=== PATIENT | female | born 1970 | race Caucasian/White ===

== ENCOUNTER → 2020-05-20 | Outpatient (CLI) | payer BC ==
--- NOTE | 2020-05-22 10:47 | MM ---
Reason for exam: screening (asymptomatic). Last mammogram was performed 10 years and 4 months ago. History: Patient had first child at age 30. Physical Findings: A clinical breast exam by your physician is recommended on an annual basis and results should be correlated with mammographic findings. MG 3D Screening Mammo W/Cad Bilateral CC and MLO view(s) were taken. Prior study comparison: January 23, 2010, mammogram, performed at [facility]. There are scattered fibroglandular densities. There is no discrete abnormality. No significant changes when compared with prior studies. ASSESSMENT: Negative, BI-RAD 1 RECOMMENDATION: Routine screening mammogram of both breasts in 1 year.
== END | disposition home or self-care (01) ==
LOC: RADMAMWWP 15:42
PROVIDERS: ATTEND Obstetrics & Gynecology Obstetrics
DX: Z12.31 Encounter for screening mammogram for malignant neoplasm of breast (principal)
CPT/HCPCS: 77063; 77067

== ENCOUNTER → 2023-04-20 | Outpatient (CLI) | payer OTHER ==
--- NOTE | 2023-04-25 07:50 | MM ---
Reason for Exam: Screening (asymptomatic). Last mammogram was performed 2 year(s) and 11 month(s) ago. Patient History: Menarche at age 20. First Full-Term at age 30. Late child-bearing (after 30). Risk Values: Alexandra 5 year model risk: 1.4%. NCI Lifetime model risk: 10.6%. Prior Study Comparison: 01/23/2010 Screening Mammogram, [facility]. 05/20/2020 Bilateral Screening Mammogram, [facility]. Tissue Density: There are scattered fibroglandular densities. Findings: Analyzed By CAD. There is no suspicious group of microcalcifications or new suspicious mass in either breast. Overall Assessment: Negative, BI-RAD 1 Management: Screening Mammogram of both breasts in [address] [facility] will attempt to contact patient to return for supplemental views and ultrasound if indicated. Patient should continue monthly self-breast exams. A clinical breast exam by your physician is recommended on an annual basis. This exam should not preclude additional follow-up of suspicious palpable abnormalities. Note on Alexandra scores and lifetime risk: 1. A Alexandra score greater than 3% is considered moderate risk. If this is the case, consider specialist referral to assess eligibility for a risk reducing agent. 2. If overall lifetime risk for the development of breast cancer is 20% or higher, the patient may qualify for future screening with alternating mammogram and breast MRI. Electronically signed and approved by: Yunior Staples DO
== END | disposition home or self-care (01) ==
LOC: RADMAMWWP 16:49
PROVIDERS: ATTEND Family Medicine
DX: Z12.31 Encounter for screening mammogram for malignant neoplasm of breast (principal)
CPT/HCPCS: 77063; 77067

== ENCOUNTER → 2025-01-18 | Outpatient (CLI) | payer OTHER ==
--- NOTE | 2025-01-18 09:32 | US ---
EXAMINATION TYPE: US abdomen complete DATE OF EXAM: 01/18/2025 COMPARISON: 08/26/2015 CLINICAL INDICATION: Female, 54 years old with history of R10.9 UNSPECIFIED ABDOMINAL PAIN; cholecyst ectomy, hx of pancreatitis, hx of kidney stones TECHNIQUE: Grayscale and color Doppler imaging of the abdomen was performed. FINDINGS: EXAM MEASUREMENTS: Liver Length: 18.7 cm Gallbladder: Surgically absent CBD: 0.5 cm, color Doppler imaging was utilized to isolate the common bile duct for measurement. Spleen: 9.6 cm Right Kidney: 11.2x4.8x5.6 cm Left Kidney: 10.3x6.0x4.8 cm [employer] NOTES: limited exam due to pt body habitus & overlying bowel Pancreas: Tail obscured by overlying bowel gas Liver: Increased attenuation, decreased visualization of vessels suggestive of fatty infiltrate, dif ficult to penetrate Gallbladder: Surgically absent Evidence for sonographic Cabral's sign: No CBD: wnl Spleen: wnl Right Kidney: ?Echogenic area seen (mid): 0.8cm ? Multiple echogenic foci seen, Largest: 1. 0.5cm 2. 0.4cm Left Kidney: ? Multiple echogenic foci seen, Largest: 1. 0.6cm 2. 0.5cm No hydronephrosis on either side. Upper IVC: slightly obscured by bowel, wnl as best seen Abd Aorta: wnl as best seen IMPRESSION: 1. Mild hepatomegaly at 18.7 cm with severe hepatic steatosis. Appropriate clinical management is adv ised. 2. Status post cholecystectomy. No biliary duct dilatation. 3. Echogenic foci within both kidneys primarily measuring up to 6 mm, suggestive of nonobstructing ca lculi. The largest 8mm echogenic focus on the right has an unusual appearance. Recommend 3-6 month fo llow-up ultrasound to reassess. [facility], , 01/18/2025 9:30 AM
== END | disposition home or self-care (01) ==
LOC: RADUSWWP 08:47
PROVIDERS: ATTEND Family Medicine
DX: K76.0 Fatty (change of) liver, not elsewhere classified (principal); R16.0 Hepatomegaly, not elsewhere classified; Z90.49 Acquired absence of other specified parts of digestive tract
CPT/HCPCS: 76700